=== PATIENT | female | born 1960 | race Caucasian/White ===

== ENCOUNTER 2016-11-05 16:24 | Outpatient (CLI) | payer OTHER ==
--- NOTE | 2016-11-05 17:01 | DIAGNOSTIC IMAGING REPORT ---
PROCEDURE: XR KNEE 3 VIEWS - LEFT INDICATION: KNEE JOINT PAIN LEFT TECHNIQUE: Three views. COMPARISON: None. FINDINGS: No fracture or dislocation. Mild spurring of the medial and patellofemoral compartments. No effusion. IMPRESSION: 1. Mild degenerative changes.
== END 2016-11-05 23:00 ==
LOC: XR SRH 16:24
DX: M17.12 Unilateral primary osteoarthritis, left knee (principal)

== ENCOUNTER 2017-01-20 11:08 | Outpatient (CLI) | payer OTHER ==
--- NOTE | 2017-01-20 13:33 | DIAGNOSTIC IMAGING REPORT ---
PROCEDURE: ABDOMEN/PELVIS WITH CONTRAST CLINICAL INDICATION: ABD PAIN TECHNIQUE: 125 ml of Isovue 300 were injected intravenously and axial images were obtained of the abdomen and pelvis with sagittal and coronal reformations. COMPARISON: None. FINDINGS: ABDOMEN: Clear lung bases. Normal sized heart. No hiatal hernia. Tiny hepatic hypodensity to small to accurately characterize. Small splenic hilum splenule. The liver, gallbladder, adrenal glands, kidneys, pancreas and spleen are otherwise normal. The abdominal aorta is normal in its course and caliber. No atherosclerosis. There are no suspicious calcifications, retroperitoneal adenopathy or masses. The stomach, upper bowel loops, and mesentery are normal. Intact anterior abdominal wall. No free fluid or inflammation. PELVIS: The appendix and pelvic small bowel loops are normal. Normal to slightly increased amount of stool in the colon and rectum. The uterus, ovaries , urinary bladder, and pelvic vessels are normal. No adenopathy, free fluid, or pelvic mass. Intact osseous structures. IMPRESSION: 1. No acute process. All CT scans at this facility use dose modulation, iterative reconstruction, and/or weight-based dosing when appropriate to reduce radiation dose to as low as reasonably achievable.
== END 2017-01-20 23:00 | disposition home or self-care (01) ==
LOC: LAB SRH 11:08 → CT SRH 11:08
DX: R10.32 Left lower quadrant pain (principal)
CPT/HCPCS: 90074; 90100; 92235; 95059

== ENCOUNTER 2017-02-10 05:26 | Emergency (ER) | payer OTHER ==
--- NOTE | 2017-02-10 07:14 | DIAGNOSTIC IMAGING REPORT ---
PROCEDURE: XR ABDOMEN 1 VIEW UPRIGHT INDICATION: ABDOMINAL PAIN TECHNIQUE: AP upright view. COMPARISON: CT abdomen/pelvis 01/20/2017. FINDINGS: Nonspecific bowel gas pattern. Mild residual stool. No suspicious mass, calcification or free air. Mild levoconvex scoliosis. IMPRESSION: 1. Nonspecific bowel gas pattern.
--- NOTE | 2017-02-10 08:12 | DIAGNOSTIC IMAGING REPORT ---
PROCEDURE: CT ABD/PELVIS WITH CONTRAST CLINICAL INDICATION: ABDOMINAL PAIN TECHNIQUE: 125 ml of Isovue 300 were injected intravenously and axial images were obtained of the entire abdomen and pelvis with sagittal and coronal reformations. COMPARISON: CT abdomen/pelvis 01/20/2017. FINDINGS: ABDOMEN: Lung base are clear. Heart size is normal. Stable four Laird hypoenhancing lesion in the left hepatic lobe, too small to characterize. The gallbladder, pancreas, spleen (splenule), adrenal glands and kidneys are normal. Normal abdominal aorta. Nonspecific bowel gas pattern. PELVIS: Normal appendix. Uterus, adnexa and bladder are unremarkable. No pelvic mass, inflammatory changes or free fluid. Bones are unremarkable. IMPRESSION: 1. Negative CT abdomen/pelvis 2. Results discussed with Dr. Madrid All CT scans at this facility use dose modulation, iterative reconstruction, and/or weight-based dosing when appropriate to reduce radiation dose to as low as reasonably achievable.
--- NOTE | 2017-02-10 09:06 | ED ORDER SUMMARY ---
..... Patient: DAGOBERTO BATISTA OrderSheet [facility] VisitID: [id number] [place] [address] 56y, F Registration Date/Time: 02/10/2017 ORDER SHEET Weight: 81.6 kg (stated) Allergies: morphine GENERAL ORDERS: Cardiac Panel Stat (05:46 02/10/2017 Tiffany VELARDE) (Ack 5:51 RKaruga) (5:52 GISELEradlynda R.N.) Amylase Urgent (05:46 02/10/2017 Tiffany VELARDE) (Ack 5:51 RKaruga) (5:52 Clarice R.N.) Lipase Urgent (05:46 02/10/2017 Tiffany VELARDE) (Ack 5:51 RKaruga) (5:52 Clarice R.N.) UA-Culture if indicated Urgent (05:46 02/10/2017 Tiffany VELARDE) (Ack 5:51 RKaruga) (6:00 Johnburn R.N.) PCT (Procalcitonin) Urgent (05:46 02/10/2017 Tiffany VELARDE) (Ack 5:51 RKaruga) (5:52 Clarice R.N.) Lactate, Serum Urgent (05:46 02/10/2017 Tiffany VELARDE) (Ack 5:51 RKaruga) (5:57 Clarice R.N.) CRP Urgent (05:46 02/10/2017 Tiffany VELARDE) (Ack 5:51 RKaruga) (5:57 Clarice R.N.) Abdomen 1V Upright Urgent (05:47 02/10/2017 Tiffany VELARDE) (Ack 5:51 RKaruga) (6:08 GISELEradburn R.N.) CT Abd/Pel w Cont (No) (N/A) Urgent (07:09 02/10/2017 Tiffany VELARDE) (Ack 7:47 LNations ER Tech1) (8:03 Austyn R.N.) Urine Drug Screen Urgent (07:16 02/10/2017 Tiffany VELARDE) (7:18 Clarice R.N.) Lactate, Serum Urgent (07:23 02/10/2017 Tiffany VELARDE) (Ack 7:47 LNations ER Tech1) (8:03 Austyn Portillo) MEDICATION ORDERS: IV FLUIDS: IV NS : initial bolus 1000 mL (1000 mL/hr), then 125 mL/hr for 4h (NOW); Routine (05:46 02/10/2017 Tiffany VELARDE) (6:01 Clarice Portillo) ORDER SHEET NOTES: [Electronically signed by Brodie Green R.N. (09:35 02/10/2017)] [Electronically signed by Teofilo Madrid MD (08:56 02/11/2017)] [Electronically locked/signed by Brodie Green R.N. (09:35 02/10/2017)]
--- NOTE | 2017-02-10 09:06 | ED CLINICAL REPORT ---
Clinical Report - Physicians/Mid Levels [facility] [address] [place] [address] 02/10/2017 5:26 [id number] Time Seen: 05:37 Feb 10 2017. Arrived- By private vehicle. Historian- patient. CPT: ER phys charges level 4 (#[id number]). HISTORY OF PRESENT ILLNESS Chief Complaint: ABDOMINAL PAIN. At its maximum, severity described as moderate. When seen in the E.D., severity described as moderate. Modifying factors- worsened by movement. Relieved by rest. It is described as "pain" and it is described as located in the left lower quadrant. This started about 2 weeks and is still present (worse). No nausea, vomiting or diarrhea. Similar symptoms previously: None. Recent medical care: Not recently seen/assessed. REVIEW OF SYSTEMS The patient has had constipation. No black stools, hematemesis, pain with urination, urinary frequency or bloody stools. No fever, sore throat, chest pain, difficulty breathing or cough. No joint pain, skin rash, chills or back pain. Last bowel movement- 2 weeks ago. All systems otherwise negative, except as recorded above. PAST HISTORY Duodenal ulcer disease. Gastroesophageal Reflux Disease. Diabetes Mellitus. . ADDITIONAL SURGERIES: Carpal Tunnel Surgery. Knee Surgery. Medications: Omeprazole Oral 40 mg, daily. MetFORMIN HCl Oral (Tablet 500 mg) 1 tablet, 2x a day. Allergies: morphine. Definite Severe(hives). SOCIAL HISTORY Never smoker. No alcohol use or drug use. ADDITIONAL NOTES The nursing notes have been reviewed. PHYSICAL EXAM Vital Signs: 02/10/2017 05:31 BP: 167/102. HR: 150. RR: 20. O2 saturation: 97%. Temp: 98.3 F. Pain level now: 10/10. Appearance: Alert. Appears to be in pain. Patient in moderate distress. Eyes: Eyes normal inspection. ENT: Pharynx normal. Neck: Normal inspection. CVS: Normal heart rate and rhythm. Heart sounds normal. Pulses normal. Respiratory: No respiratory distress. Breath sounds normal. Chest nontender. Abdomen: Soft. Moderate tenderness in the left lower quadrant with guarding present. Abnormal bowel sounds: diminished. No mass. Back: Normal inspection. Skin: Skin warm. Normal skin color. No rash. Extremities: Extremities exhibit normal ROM. No lower extremity edema. Neuro: Oriented X 3. No motor deficit. No sensory deficit. Reflexes normal. LABS, X-RAYS, AND EKG Abdominal CT: Normal study. No diverticulitis. Abdominal CT performed with IV contrast. The study was independently viewed by me, interpreted by the radiologist and discussed with the radiologist. Laboratory Tests: UA-Culture if indicated: (MALI: 02/10/2017 05:59) ( [facility] 02/10/2017 06:22) Final results Test Result Flag Units (Reference) URINE COLOR YELLOW URINE APPEARANCE CLEAR URINE GLUCOSE NEGATIVE (NEGATIVE) URINE BILIRUBIN NEGATIVE (NEGATIVE) URINE KETONE TRACE (NEGATIVE) URINE SPECIFIC GRAVITY 1.025 (1.010-1.030) URINE PH 5.5 (5.0-8.0) URINE PROTEIN TRACE (NEGATIVE) URINE UROBILINOGEN 0.2 EU/dL (0.2-1.0) URINE NITRITE NEGATIVE (NEGATIVE) URINE BLOOD TRACE-LYSED (NEGATIVE) URINE LEUK ESTERASE POSITIVE (NEGATIVE) URINE RBC 1-3 rbc/hpf (0-1) URINE WBC 5-10 wbc/hpf (0-1) URINE EPITHELIAL CELLS 3-5 EPI/hpf (0-5) URINE BACTERIA NONE SEEN (NONE SEEN) URINE COMMENT CULTURE INDICATED 2+ MUCUSURINE CULTURES ARE SET-UP BASED ON THE FOLLOWING CRITERIA:POSITIVE NITRITEPOSITIVE LEUKOCYTE ESTERASEGREATER THAN 10 WHITE BLOOD CELLSMODERATE (2+) OR GREATER BACTERIA CBC w Diff: (MALI: 02/10/2017 05:53) ( Mscvd 02/10/2017 06:09) Final results Test Result Flag Units (Reference) WHITE BLOOD COUNT 9.6 K/uL (4.5-11.5) RED BLOOD COUNT 5.56 H M/uL (4.00-5.20) HEMOGLOBIN 16.4 H gm/dL (12.0-16.0) HEMATOCRIT 48.5 H % (36.0-46.0) MEAN CELL VOLUME 87 fL (80-100) MEAN CORPUSCULAR HGB 30 pg (26-34) MEAN CORPUSCULAR HGB CONC 34 g/dL (31-37) RED CELL DISTRIBUTION WIDTH 13.3 % (11.6-14.8) PLATELET COUNT 315 K/uL (150-400) NEUTROPHIL % 55.5 % (50-75) LYMPH % 35.1 % (25-40) MONO % 7.9 % (3-14) EOSINOPHIL % 1.1 % (0-4) BASOPHIL % 0.4 % (0-2) Lactate, Serum: (MALI: 02/10/2017 07:35) ( [facility] 02/10/2017 08:12) Final results Test Result Flag Units (Reference) LACTIC ACID 1.9 mmol/L (0.4-2.0) Urine Drug Screen: (MALI: 02/10/2017 05:59) ( [facility] 02/10/2017 07:49) Final results Test Result Flag Units (Reference) AMPHETAMINE/METHAMPHETAMINE NEGATIVE (NEGATIVE) BARBITURATE NEGATIVE (NEGATIVE) BENZODIAZEPINE NEGATIVE (NEGATIVE) CANNABINOID NEGATIVE (NEGATIVE) COCAINE NEGATIVE (NEGATIVE) ECSTASY NEGATIVE (NEGATIVE) METHADONE NEGATIVE (NEGATIVE) OPIATE NEGATIVE (NEGATIVE) The urine drug screen is a qualitative screening test fordrug overdose and abuse. All screen results should beconsidered as presumptive.Drugs screened for are as follows:BenzodiazepinesCocaineAmphetamines/MetamphetaminesTHC (Tetrahydrocannabinol)OpiatesBarbituratesEcstasyMethadonePositive results are unconfirmed. For confirmation, notifythe lab for the specimen to be sent to the reference lab.All confirmations must be performed by a differentmethodology.The ingestion of natural herbal and plant productscontaining Ephedra/Ephedra metabolites can produce in urineone or more substances capable of cross reacting withamphetamine/methamphetamine immunoassays. These testsprovide a preliminary result only. A more specificalternative chemical method must be used to obtain aconfirmed analytical result. Lactate, Serum: (MALI: 02/10/2017 05:53) ( [facility] 02/10/2017 07:08) Final results Test Result Flag Units (Reference) LACTIC ACID 3.9 H mmol/L (0.4-2.0) CRITICAL RESULTS CALLEDCalled to RORO BRICENO RN 02/10/17 0706Were 2 patient identifiers used? YWas the result read back? Y [id number]: (MALI: 02/10/2017 05:53) ( MsgRcvd 02/10/2017 07:08) Final results Test Result Flag Units (Reference) PROCALCITONIN <0.5 ng/mL (0-0.5) PCT Concentration: Interpretation : Risk/option for action PCT <=0.5 ng/mL : Systemic : Low risk forinfection(sepsis): progression to severeis not likely. : systemic infection.Local bacterial : CAUTION-PCT levelsinfection is : below 0.5 ng/mL do notpossible. : exclude an infection,because localizedinfections (withoutsystemic signs) may beassociated with suchlow levels. If PCT ismeasured very earlyafter a bacterialchallenge (usually <6hours), these valuesmay still be low. Inthis case PCT shouldbe re-assessed 6-24hours later. PCT >0.5 and : Systemic infection: Moderate risk for<= 2 ng/mL : (sepsis) is : progression to severepossible, but : systemic infection.other conditions : The patient should beare known to : closely monitoredelevate PCT. : both clinically andby re-assessing PCTwithin 6-24 hours. PCT > 2 ng/mL : Systemic infection: High risk for(sepsis) is likely: progression to severeunless other : systemic infection.causes are known. : PCT >= 10 ng/mL : Important systemic: High likelihood ofinflammatory : severe sepsis orresponse, almost : septic shock.exclusively due to:severe bacterial :sepsis or septic :shock. : CHEM 13 PANEL: (MALI: 02/10/2017 05:53) ( MsgRcvd 02/10/2017 06:30) Final results Test Result Flag Units (Reference) GLUCOSE 206 H mg/dL (70-110) BUN 12 mg/dL (7-18) CREATININE 1.0 mg/dL (0.6-1.3) Estimated GFR >60 mL/min Estimated GFR- >60 mL/min Note: Persistent reduction over 3 months in eGFR<60 mL/min/1.73 m2 defines CKD. Patients with eGFR values>=60 mL/min/1.73 m2 may also have CKD if evidence ofpersistent proteinuria. Additional information may be foundat www.kidney.org. SODIUM 140 mmol/L (136-145) POTASSIUM 3.7 mmol/L (3.5-5.1) CHLORIDE 102 mmol/L (98-107) CARBON DIOXIDE 26 mmol/L (21-32) CALCIUM 9.4 mg/dL (8.5-10.1) TOTAL PROTEIN 7.5 g/dL (6.4-8.2) ALBUMIN 4.0 g/dL (3.3-5.0) BILIRUBIN, TOTAL 0.6 mg/dL (0.0-1.0) ALKALINE PHOSPHATASE 80 U/L (46-116) AST (SGOT) 16 U/L (15-37) ALT (SGPT) 24 U/L (12-78) MAGNESIUM 1.9 mg/dL (1.8-2.4) LIPASE 102 U/L (73-393) AMYLASE 38 U/L (25-115) CPK 46 U/L (24-260) TROPONIN I <0.05 L ng/mL (0.00-1.5) TROPONIN REFERENCE RANGE:<0.1 NEGATIVE0.1-1.5 INDETERMINANT>1.5 POSITIVE C-REACTIVE PROTEIN < 0.2 mg/dL (0.0-0.9) . PROGRESS AND PROCEDURES Course of Care: IV NS Patient is stable. Patient/family counseled. Disposition: Discharged. Condition: stable. CLINICAL IMPRESSION Acute left lower quadrant abdominal pain of unknown cause. INSTRUCTIONS Do not work today, for one day until better. Take clear liquids only until better. (Until done with GoLytely.). Warnings: Further evaluation is necessary. GENERAL WARNINGS: Return or contact your physician immediately if your condition worsens or changes unexpectedly, if not improving as expected, or if other problems arise. Your Current Medications: CONTINUE TAKING THE FOLLOWING MEDICATIONS: MetFORMIN HCl Oral : Tablet 500 mg, 1 tablet 2x a day. Omeprazole Oral : 40 mg daily. Prescription Medications: Zofran (orally disintegrating tablets) 4 mg: take 1 orally every 4 hours as needed for nausea. Dispense five (5). No refill. GoLytely 4 oz every 15 minutes until gone. # 1 jug. Follow-up: Return to the emergency department tomorrow if not better. Follow up with your doctor in one week. Call for an appointment. Follow up with a bookseamer blindstitch in two weeks. Call for the next available appointment. Understanding of the discharge instructions verbalized by patient. (Electronically signed by Teofilo Madrid MD 02/11/2017 8:56)
--- NOTE | 2017-02-10 09:06 | ED NURSING NOTES ---
Clinical Report - Nurses [facility] [address] [place] [address] 02/10/2017 5:26 [id number] Triage time 05:30. Acuity: LEVEL 3. Chief Complaint: ABDOMINAL PAIN, NAUSEA and VOMITING and CONSTIPATION (states stool look like coffee grounds). --05:42 Geri Hong R.N. 05:31 02/10/17. BP: 167/102 taken on the left arm, while lying. HR: 150 (regular and tachycardic). RR: 20 (regular, unlabored and rapid). O2 saturation: 97% on room air. Temp: 98.3 F (oral). Pain level now: 05/20. --05:42 Geri Hong R.N. Weight: 81.6 kg stated. Height/Length: 62 inches Per Patient. BMI: 32.9. --05:30 Geri Hong R.N. Medications MetFORMIN HCl Oral (Tablet 500 mg) 1 tablet, 2x a day. --05:37 Geri Hong R.N. Omeprazole Oral 40 mg, daily. --05:37 Geri Hong R.N. Allergies morphine. Definite Severe(hives) --05:39 Geri Hong R.N. History Arrived by private vehicle. Historian: patient. Unaccompanied. Primary physician (christa). ( reports no BM for 2 weeks except very small amt of what looks like coffee grounds since Friday with severe pain on the left lower. pt states she feels like there is no room in her stomach for anything. CT scan done here 2 weeks ago for same). PAST MEDICAL HX: Immunizations: up-to-date. The patient is post-menopausal. SOCIAL HX: Never smoker. No alcohol use or drug use. No infectious disease exposure. ABUSE ASSESSMENT: No report of abuse. SELF HARM ASSESSMENT: A self harm assessment was performed. The patient answered "no" to the question "Have you recently felt down, depressed, or hopeless?", "Have you noticed less interest or pleasure in doing things?", "Do you have thoughts of harming or killing yourself?", "Are you here because you tried to hurt yourself?", "Have you ever tried to hurt yourself before today?", "Have you recently had thoughts about harming or killing others?" and "Do you have any dangerous items in your possession?". FALL RISK ASSESSMENT: Fall risk assessment completed. No fall risk identified. NUTRITIONAL RISK ASSESSMENT: The nutritional risk assessment revealed no deficiencies. FUNCTIONAL ASSESSMENT: Functional assessment: no impairments noted. LEARNING NEEDS ASSESSMENT: The learning needs assessment revealed no barriers. SKIN INTEGRITY ASSESSMENT: Skin integrity risk assessment completed. No skin integrity risk identified. --05:42 Geri Hong R.N. PROBLEMS: Duodenal ulcer disease. Gastroesophageal Reflux Disease. Diabetes Mellitus. --05:40 Geri Hong R.N. ADDITIONAL SURGERIES: Carpal Tunnel Surgery. Knee Surgery. --05:40 Geri Hong R.N. Interventions ID band on patient. To treatment room. --05:42 Geri Hong R.N. PHYSICAL ASSESSMENT Ambulatory to room. GENERAL / NEURO / PSYCH: Alert. Oriented X 4. Appears anxious. HEENT: Mucous membranes are pink. RESPIRATORY: Respirations not labored. Breath sounds within normal limits. CVS: Normal sinus rhythm noted. Cardiac rhythm: sinus tachycardia; (128). Capillary refill less than 2 seconds. GI / : Mild obesity. Abdomen soft. Abdominal tenderness in the left lower quadrant. Bowel sounds within normal limits. Stool heme negative; hemoccult corporate quality assurance manager check passed. performed by mD (POC test reference range: negative). SKIN: Skin is warm and dry. --05:44 Geri Hong R.N. NURSING PROGRESS NOTES Two patient identifiers checked. Call light placed in reach. Side rails up x 2. Bed placed in lowest position. Brakes of bed on. Patient ready for evaluation- chart flagged. --05:44 Geri Hong R.N. 05:53 02/10/2017 Site #1 started via IV in the left wrist with an 20g angiocath, with aseptic technique and good blood return; one attempt. Blood drawn: rainbow set. Labeled in the presence of the patient and sent to the lab. Saline lock flushed with 10 mL saline. --05:57 Geri Hong R.N. 06:01 02/10/2017 Started bag #1 1000 mL IV Fluids IV NS (Saline); bolus of 1000 mL wide open then over 1 hour(s) via site #1. Allergies verified and confirmed 5 rights. IV patency established. IV site checked: no pain, redness, or swelling. IV flushed thoroughly pre- and post-medication administration. --06:01 Geri Hong R.N. 06:56 02/10/17. BP: 145/95 taken on the right arm, while lying. HR: 99 (regular and normal rate). RR: 18. O2 saturation: 99%. Temp: deferred. Pain level now: 12/18. --07:01 Geri Hong R.N. Overall patient status is the same- she states feels the same. ( pt continues to complain of pain , will continue to monitor). GI / : The patient reports abdominal pain located in the LUQ and LLQ. Two patient identifiers checked. Call light placed in reach. Side rails up x 2. Bed placed in lowest position. Brakes of bed on. --07:01 Geri Hong R.N. Critical value relayed to ED by lab. Critical value received by vaibhav. Lactate level: 3.9. Critical value read back. ED physician notifed of critical value (heber). Orders were not received. --07:10 Geri Hong R.N. 07:42 02/10/17. Patient transported to ID by stretcher with [employer]. --07:42 Brodie Green R.N. 07:42 02/10/17. ( Lab at bedside drawing blood). --07:42 Brodie Green R.N. 07:59 02/10/2017 IV Fluids IV NS Discontinued: bag #1 infused. Total amount infused: 1000 mL. IV patency established. IV site checked: no pain, redness, or swelling. IV flushed thoroughly. --08:04 Brodie Green R.N. 08:02 02/10/17. Patient returned from CT by stretcher with tech. --08:02 Brodie Green R.N. 08:03 02/10/17. --08:03 Brodie Green R.N. 08:02 02/10/17. BP: 144/90. HR: 88. RR: 18. O2 saturation: 100% on room air. --08:03 Brodie Green R.N. 08:04 02/10/2017 Started bag #2 1000 mL IV Fluids IV NS (Saline); at 125 mL/hr over 4 hour(s) via site #1. Allergies verified and confirmed 5 rights. Completed per protocol. --08:04 Brodie Green R.N. 08:02/10/17. Cardiac rhythm: normal sinus rhythm; (88). --08:09 Brodie Green R.N. 08:09 02/10/17. ( Pt ambulated to bathroom and back to bed, tolerated well). --08:09 Brodie Green R.N. 08:10 02/10/17. Patient informed about reason for wait and about plan of care. --08:10 Brodie Green R.N. 08:10 02/10/17. Patient waiting for CT results and (lab results). --08:10 Brodie Green R.N. 09:14 02/10/2017 IV Fluids IV NS Discontinued: bag #2 STOPPED upon discharge. Total amount infused: 150 mL. IV patency established. IV site checked: no pain, redness, or swelling. IV flushed thoroughly. --09:19 Brodie Green R.N. DISPOSITION / DISCHARGE 09:17 02/10/2017 Site #1 removed upon discharge. Catheter intact. Bandage applied. --09:17 Brodie Green R.N. 09:18 02/10/17. Cardiac rhythm: normal sinus rhythm. Condition at departure: improved. The goals identified in the patient's plan of care were met. No learning barriers present. Discharge instructions provided and reviewed with the patient. Reviewed warnings. Reviewed medication(s) side effects, precautions, dosing and course information. Prescription(s) given to the patient. Treatments reviewed. Reviewed referrals. Patient verbalized understanding. Written instructions provided in [place]. The patient was discharged by the physician. She was discharged home and unaccompanied at time of discharge. She left the Emergency Department ambulatory and via private vehicle. Patient driving. FALL RISK ASSESSMENT: Fall risk assessment completed. No fall risk identified. --09:18 Brodie Green R.N. 09:16 02/10/17. BP: 123/83. HR: 80. RR: 20. O2 saturation: 100% on room air. Pain level now: 11/18. --09:18 Brodie Green R.N. Departure time: 09:23 Feb 10 2017. --09:23 Brodie Green R.N. Locked/Released at 02/10/2017 9:35 by Brodie Green R.N.
--- NOTE | 2017-02-10 09:06 | ED ORDER SUMMARY ---
..... Patient: DAGOBERTO BATISTA OrderSheet [facility] VisitID: [id number] [place] [address] 56y, F Registration Date/Time: 02/10/2017 ORDER SHEET Weight: 81.6 kg (stated) Allergies: morphine GENERAL ORDERS: Cardiac Panel Stat (05:46 02/10/2017 Tiffany VELARDE) (Ack 5:51 RKaruga) (5:52 GISELEradlynda R.N.) Amylase Urgent (05:46 02/10/2017 Tiffany VELARDE) (Ack 5:51 RKaruga) (5:52 Clarice R.N.) Lipase Urgent (05:46 02/10/2017 Tiffany VELARDE) (Ack 5:51 RKaruga) (5:52 Clarice R.N.) UA-Culture if indicated Urgent (05:46 02/10/2017 Tiffany VELARDE) (Ack 5:51 RKaruga) (6:00 Johnburn R.N.) PCT (Procalcitonin) Urgent (05:46 02/10/2017 Tiffany VELARDE) (Ack 5:51 RKaruga) (5:52 Clarice R.N.) Lactate, Serum Urgent (05:46 02/10/2017 Tiffany VELARDE) (Ack 5:51 RKaruga) (5:57 Clarice R.N.) CRP Urgent (05:46 02/10/2017 Tiffany VELARDE) (Ack 5:51 RKaruga) (5:57 Clarice R.N.) Abdomen 1V Upright Urgent (05:47 02/10/2017 Tiffany VELARDE) (Ack 5:51 RKaruga) (6:08 GISELEradburn R.N.) CT Abd/Pel w Cont (No) (N/A) Urgent (07:09 02/10/2017 Tiffany VELARDE) (Ack 7:47 LNations ER Tech1) (8:03 Austyn R.N.) Urine Drug Screen Urgent (07:16 02/10/2017 Tiffany VELARDE) (7:18 Clarice R.N.) Lactate, Serum Urgent (07:23 02/10/2017 Tiffany VELARDE) (Ack 7:47 LNations ER Tech1) (8:03 Austyn Portillo) MEDICATION ORDERS: IV FLUIDS: IV NS : initial bolus 1000 mL (1000 mL/hr), then 125 mL/hr for 4h (NOW); Routine (05:46 02/10/2017 Tiffany VELARDE) (6:01 Clarice Portillo) ORDER SHEET NOTES: [Electronically signed by Brodie Green R.N. (09:35 02/10/2017)] [Electronically signed by Teofilo Madrid MD (08:56 02/11/2017)] [Electronically locked/signed by Brodie Green R.N. (09:35 02/10/2017)]
--- NOTE | 2017-02-10 09:06 | ED CLINICAL REPORT ---
Clinical Report - Physicians/Mid Levels [facility] [address] [place] [address] 02/10/2017 5:26 [id number] Time Seen: 05:37 Feb 10 2017. Arrived- By private vehicle. Historian- patient. CPT: ER phys charges level 4 (#[id number]). HISTORY OF PRESENT ILLNESS Chief Complaint: ABDOMINAL PAIN. At its maximum, severity described as moderate. When seen in the E.D., severity described as moderate. Modifying factors- worsened by movement. Relieved by rest. It is described as "pain" and it is described as located in the left lower quadrant. This started about 2 weeks and is still present (worse). No nausea, vomiting or diarrhea. Similar symptoms previously: None. Recent medical care: Not recently seen/assessed. REVIEW OF SYSTEMS The patient has had constipation. No black stools, hematemesis, pain with urination, urinary frequency or bloody stools. No fever, sore throat, chest pain, difficulty breathing or cough. No joint pain, skin rash, chills or back pain. Last bowel movement- 2 weeks ago. All systems otherwise negative, except as recorded above. PAST HISTORY Duodenal ulcer disease. Gastroesophageal Reflux Disease. Diabetes Mellitus. . ADDITIONAL SURGERIES: Carpal Tunnel Surgery. Knee Surgery. Medications: Omeprazole Oral 40 mg, daily. MetFORMIN HCl Oral (Tablet 500 mg) 1 tablet, 2x a day. Allergies: morphine. Definite Severe(hives). SOCIAL HISTORY Never smoker. No alcohol use or drug use. ADDITIONAL NOTES The nursing notes have been reviewed. PHYSICAL EXAM Vital Signs: 02/10/2017 05:31 BP: 167/102. HR: 150. RR: 20. O2 saturation: 97%. Temp: 98.3 F. Pain level now: 10/10. Appearance: Alert. Appears to be in pain. Patient in moderate distress. Eyes: Eyes normal inspection. ENT: Pharynx normal. Neck: Normal inspection. CVS: Normal heart rate and rhythm. Heart sounds normal. Pulses normal. Respiratory: No respiratory distress. Breath sounds normal. Chest nontender. Abdomen: Soft. Moderate tenderness in the left lower quadrant with guarding present. Abnormal bowel sounds: diminished. No mass. Back: Normal inspection. Skin: Skin warm. Normal skin color. No rash. Extremities: Extremities exhibit normal ROM. No lower extremity edema. Neuro: Oriented X 3. No motor deficit. No sensory deficit. Reflexes normal. LABS, X-RAYS, AND EKG Abdominal CT: Normal study. No diverticulitis. Abdominal CT performed with IV contrast. The study was independently viewed by me, interpreted by the radiologist and discussed with the radiologist. Laboratory Tests: UA-Culture if indicated: (MALI: 02/10/2017 05:59) ( [facility] 02/10/2017 06:22) Final results Test Result Flag Units (Reference) URINE COLOR YELLOW URINE APPEARANCE CLEAR URINE GLUCOSE NEGATIVE (NEGATIVE) URINE BILIRUBIN NEGATIVE (NEGATIVE) URINE KETONE TRACE (NEGATIVE) URINE SPECIFIC GRAVITY 1.025 (1.010-1.030) URINE PH 5.5 (5.0-8.0) URINE PROTEIN TRACE (NEGATIVE) URINE UROBILINOGEN 0.2 EU/dL (0.2-1.0) URINE NITRITE NEGATIVE (NEGATIVE) URINE BLOOD TRACE-LYSED (NEGATIVE) URINE LEUK ESTERASE POSITIVE (NEGATIVE) URINE RBC 1-3 rbc/hpf (0-1) URINE WBC 5-10 wbc/hpf (0-1) URINE EPITHELIAL CELLS 3-5 EPI/hpf (0-5) URINE BACTERIA NONE SEEN (NONE SEEN) URINE COMMENT CULTURE INDICATED 2+ MUCUSURINE CULTURES ARE SET-UP BASED ON THE FOLLOWING CRITERIA:POSITIVE NITRITEPOSITIVE LEUKOCYTE ESTERASEGREATER THAN 10 WHITE BLOOD CELLSMODERATE (2+) OR GREATER BACTERIA CBC w Diff: (MALI: 02/10/2017 05:53) ( [facility] 02/10/2017 06:09) Final results Test Result Flag Units (Reference) WHITE BLOOD COUNT 9.6 K/uL (4.5-11.5) RED BLOOD COUNT 5.56 H M/uL (4.00-5.20) HEMOGLOBIN 16.4 H gm/dL (12.0-16.0) HEMATOCRIT 48.5 H % (36.0-46.0) MEAN CELL VOLUME 87 fL (80-100) MEAN CORPUSCULAR HGB 30 pg (26-34) MEAN CORPUSCULAR HGB CONC 34 g/dL (31-37) RED CELL DISTRIBUTION WIDTH 13.3 % (11.6-14.8) PLATELET COUNT 315 K/uL (150-400) NEUTROPHIL % 55.5 % (50-75) LYMPH % 35.1 % (25-40) MONO % 7.9 % (3-14) EOSINOPHIL % 1.1 % (0-4) BASOPHIL % 0.4 % (0-2) Lactate, Serum: (MALI: 02/10/2017 07:35) ( [facility] 02/10/2017 08:12) Final results Test Result Flag Units (Reference) LACTIC ACID 1.9 mmol/L (0.4-2.0) Urine Drug Screen: (MALI: 02/10/2017 05:59) ( [facility] 02/10/2017 07:49) Final results Test Result Flag Units (Reference) AMPHETAMINE/METHAMPHETAMINE NEGATIVE (NEGATIVE) BARBITURATE NEGATIVE (NEGATIVE) BENZODIAZEPINE NEGATIVE (NEGATIVE) CANNABINOID NEGATIVE (NEGATIVE) COCAINE NEGATIVE (NEGATIVE) ECSTASY NEGATIVE (NEGATIVE) METHADONE NEGATIVE (NEGATIVE) OPIATE NEGATIVE (NEGATIVE) The urine drug screen is a qualitative screening test fordrug overdose and abuse. All screen results should beconsidered as presumptive.Drugs screened for are as follows:BenzodiazepinesCocaineAmphetamines/MetamphetaminesTHC (Tetrahydrocannabinol)OpiatesBarbituratesEcstasyMethadonePositive results are unconfirmed. For confirmation, notifythe lab for the specimen to be sent to the reference lab.All confirmations must be performed by a differentmethodology.The ingestion of natural herbal and plant productscontaining Ephedra/Ephedra metabolites can produce in urineone or more substances capable of cross reacting withamphetamine/methamphetamine immunoassays. These testsprovide a preliminary result only. A more specificalternative chemical method must be used to obtain aconfirmed analytical result. Lactate, Serum: (MALI: 02/10/2017 05:53) ( [facility] 02/10/2017 07:08) Final results Test Result Flag Units (Reference) LACTIC ACID 3.9 H mmol/L (0.4-2.0) CRITICAL RESULTS CALLEDCalled to RORO BRICENO RN 02/10/17 0706Were 2 patient identifiers used? YWas the result read back? Y [id number]: (MALI: 02/10/2017 05:53) ( MsgRcvd 02/10/2017 07:08) Final results Test Result Flag Units (Reference) PROCALCITONIN <0.5 ng/mL (0-0.5) PCT Concentration: Interpretation : Risk/option for action PCT <=0.5 ng/mL : Systemic : Low risk forinfection(sepsis): progression to severeis not likely. : systemic infection.Local bacterial : CAUTION-PCT levelsinfection is : below 0.5 ng/mL do notpossible. : exclude an infection,because localizedinfections (withoutsystemic signs) may beassociated with suchlow levels. If PCT ismeasured very earlyafter a bacterialchallenge (usually <6hours), these valuesmay still be low. Inthis case PCT shouldbe re-assessed 6-24hours later. PCT >0.5 and : Systemic infection: Moderate risk for<= 2 ng/mL : (sepsis) is : progression to severepossible, but : systemic infection.other conditions : The patient should beare known to : closely monitoredelevate PCT. : both clinically andby re-assessing PCTwithin 6-24 hours. PCT > 2 ng/mL : Systemic infection: High risk for(sepsis) is likely: progression to severeunless other : systemic infection.causes are known. : PCT >= 10 ng/mL : Important systemic: High likelihood ofinflammatory : severe sepsis orresponse, almost : septic shock.exclusively due to:severe bacterial :sepsis or septic :shock. : CHEM 13 PANEL: (MALI: 02/10/2017 05:53) ( MsgRcvd 02/10/2017 06:30) Final results Test Result Flag Units (Reference) GLUCOSE 206 H mg/dL (70-110) BUN 12 mg/dL (7-18) CREATININE 1.0 mg/dL (0.6-1.3) Estimated GFR >60 mL/min Estimated GFR- >60 mL/min Note: Persistent reduction over 3 months in eGFR<60 mL/min/1.73 m2 defines CKD. Patients with eGFR values>=60 mL/min/1.73 m2 may also have CKD if evidence ofpersistent proteinuria. Additional information may be foundat www.kidney.org. SODIUM 140 mmol/L (136-145) POTASSIUM 3.7 mmol/L (3.5-5.1) CHLORIDE 102 mmol/L (98-107) CARBON DIOXIDE 26 mmol/L (21-32) CALCIUM 9.4 mg/dL (8.5-10.1) TOTAL PROTEIN 7.5 g/dL (6.4-8.2) ALBUMIN 4.0 g/dL (3.3-5.0) BILIRUBIN, TOTAL 0.6 mg/dL (0.0-1.0) ALKALINE PHOSPHATASE 80 U/L (46-116) AST (SGOT) 16 U/L (15-37) ALT (SGPT) 24 U/L (12-78) MAGNESIUM 1.9 mg/dL (1.8-2.4) LIPASE 102 U/L (73-393) AMYLASE 38 U/L (25-115) CPK 46 U/L (24-260) TROPONIN I <0.05 L ng/mL (0.00-1.5) TROPONIN REFERENCE RANGE:<0.1 NEGATIVE0.1-1.5 INDETERMINANT>1.5 POSITIVE C-REACTIVE PROTEIN < 0.2 mg/dL (0.0-0.9) . PROGRESS AND PROCEDURES Course of Care: IV NS Patient is stable. Patient/family counseled. Disposition: Discharged. Condition: stable. CLINICAL IMPRESSION Acute left lower quadrant abdominal pain of unknown cause. INSTRUCTIONS Do not work today, for one day until better. Take clear liquids only until better. (Until done with GoLytely.). Warnings: Further evaluation is necessary. GENERAL WARNINGS: Return or contact your physician immediately if your condition worsens or changes unexpectedly, if not improving as expected, or if other problems arise. Your Current Medications: CONTINUE TAKING THE FOLLOWING MEDICATIONS: MetFORMIN HCl Oral : Tablet 500 mg, 1 tablet 2x a day. Omeprazole Oral : 40 mg daily. Prescription Medications: Zofran (orally disintegrating tablets) 4 mg: take 1 orally every 4 hours as needed for nausea. Dispense five (5). No refill. GoLytely 4 oz every 15 minutes until gone. # 1 jug. Follow-up: Return to the emergency department tomorrow if not better. Follow up with your doctor in one week. Call for an appointment. Follow up with a central supply worker in two weeks. Call for the next available appointment. Understanding of the discharge instructions verbalized by patient. (Electronically signed by Teofilo Madrid MD 02/11/2017 8:56)
--- NOTE | 2017-02-11 08:56 | ED MED RECONCILIATION SUMMARY ---
Patient: DAGOBERTO BATISTA Medication Reconciliation Report [facility] VisitID: [id number] [address] [place] [address] 56y, F Registration Date/Time: 02/10/2017 Weight: 81.6 kg Height/Length: 62 in. BMI: 32.9 ALLERGIES: morphine The patient's Home Medications are listed below: CONTINUE TAKING THE FOLLOWING MEDICATIONS: MetFORMIN HCl Oral (500 mg) 1 tablet, 2x a day Omeprazole Oral 40 mg, daily The source(s) of the original Home Medication information: Not obtained. The following Medications were given to the patient in the Emergency Department: IV NS IV Fluids bolus 1000 mL wide open, administered: 02/10/2017 6:01:00 AM IV NS IV Fluids bolus 0, then 125 mL/hr, administered: 02/10/2017 8:04:00 AM The following Medications were prescribed to the patient: Zofran (orally disintegrating tablets) 4 mg: take 1 orally every 4 hours as needed for nausea. Dispense five (5). No refill. -- Teofilo Madrid MD GoLytely 4 oz every 15 minutes until gone. # 1 jug. -- Teofilo Madrid MD
--- NOTE | 2017-02-11 08:56 | ED DISCHARGE INSTRUCTIONS ---
Patient: DAGOBERTO BATISTA General Instructions [facility] VisitID: [id number] [place] [address] 56y, F Registration Date/Time: 02/10/2017 Acute left lower quadrant abdominal pain of unknown cause. INSTRUCTIONS Do not work today, for one day until better. Take clear liquids only until better. (Until done with GoLytely.). Warnings: Further evaluation is necessary. GENERAL WARNINGS: Return or contact your physician immediately if your condition worsens or changes unexpectedly, if not improving as expected, or if other problems arise. Your Current Medications: CONTINUE TAKING THE FOLLOWING MEDICATIONS: MetFORMIN HCl Oral : Tablet 500 mg, 1 tablet 2x a day. Omeprazole Oral : 40 mg daily. Prescription Medications: Zofran (orally disintegrating tablets) 4 mg: take 1 orally every 4 hours as needed for nausea. Dispense five (5). No refill. GoLytely 4 oz every 15 minutes until gone. # 1 jug. Follow-up: Return to the emergency department tomorrow if not better. Follow up with your doctor in one week. Call for an appointment. Follow up with a state fire marshal in two weeks. Call for the next available appointment. Understanding of the discharge instructions verbalized by patient. ADDITIONAL INFORMATION Abdominal Pain, Unknown Cause (Female) The exact cause of your abdominal (stomach) pain is not certain. This does not mean that this is something to worry about, or the right tests were not done. Everyone likes to know the exact cause of the problem, but sometimes with abdominal pain, there is no clear-cut cause, and this could be a good thing. The good news is that your symptoms can be treated, and you will feel better. Your condition does not seem serious now; however, sometimes the signs of a serious problem may take more time to appear. For this reason,it is important for you to watch for any new symptoms, problems,or worsening of your condition. Over the next few days, the abdominal pain may come and go, or be continuous. Other common symptoms can include nausea and vomiting. Sometimes it can be difficult to tell if you feel nauseous, you may just feel bad and not associate that feeling with nausea. Constipation, diarrhea, and a fever may go along with the pain. The pain may continue even if treated correctly over the following days. Depending on how things go, sometimes the cause can become clear and may require further or different treatment. Additional evaluations, medications, or tests may be needed. Home care Your health care provider may prescribe medications for pain, symptoms, or an infection. Follow the health care provider's instructions for taking these medications. General care Rest until your next exam. No strenuous activities. Try to find positions that ease discomfort. A small pillow placed on the abdomen may help relieve pain. Something warm on your abdomen (such as a heating pad) may help, but be careful not to burn yourself. Diet Do not force yourself to eat, especially if having cramps, vomiting, or diarrhea. Water is important so you do not get dehydrated. Soup may also be good. Sports drinks may also help, especially if they are not too acidic. Make sure you don't drink sugary drinks as this can make things worse. Take liquids in small amounts. Do not guzzle them. Caffeine sometimes makes the pain and cramping worse. Avoid dairy products if you have vomiting or diarrhea. Don't eat large amounts at a time. Wait a few minutes between bites. Eat a diet low in fiber (called a low-residue diet). Foods allowed include refined breads, white rice, fruit and vegetable juices without pulp, tender meats. These foods will pass more easily through the intestine. Avoid whole-grain foods, whole fruits and vegetables, meats, seeds and nuts, fried or fatty foods, dairy, alcohol and spicy foods until your symptoms go away. Follow-up care Follow up with your health care provider as instructed, or if your pain does not begin to improve in the next 24 hours. When to seek medical care Seek prompt medical care if any of the following occur: Pain gets worse or moves to the right lower abdomen New or worsening vomiting or diarrhea Swelling of the abdomen Unable to pass stool for more than three days Fever of 100.4F (38C) or higher, or as directed by your healthcare provider. Blood in vomit or bowel movements (dark red or black color) Jaundice (yellow color of eyes and skin) Weakness, dizziness Chest, arm, back, neck or jaw pain Unexpected vaginal bleeding or missed period Call 911 Call emergency services if any of the following occur: Trouble breathing Confusion Fainting or loss of consciousness Rapid heart rate Seizure Ondansetron Oral disintegrating tablet What is this medicine? ONDANSETRON (on PATRIZIA se raymond) is used to treat nausea and vomiting caused by chemotherapy. It is also used to prevent or treat nausea and vomiting after surgery. How should I use this medicine? These tablets are made to dissolve in the mouth. Do not try to push the tablet through the foil backing. With dry hands, peel away the foil backing and gently remove the tablet. Place the tablet in the mouth and allow it to dissolve, then swallow. While you may take these tablets with water, it is not necessary to do so. Talk to your machine design engineer regarding the use of this medicine in children. Special care may be needed. What side effects may I notice from receiving this medicine? Side effects that you should report to your doctor or health career center director as soon as possible: allergic reactions like skin rash, itching or hives, swelling of the face, lips, or tongue breathing problems dizziness fast or irregular heartbeat feeling faint or lightheaded, falls fever and chills swelling of the hands and feet tightness in the chest Side effects that usually do not require medical attention (report to your doctor or health career center director if they continue or are bothersome): constipation or diarrhea headache What may interact with this medicine? Do not take this medicine with any of the following medications: -apomorphine -cisapride -dofetilide -dronedarone -pimozide -thioridazine -ziprasidone This medicine may also interact with the following medications: -carbamazepine -phenytoin -rifampicin -tramadol -other medicines that prolong the QT interval (cause an abnormal heart rhythm) What if I miss a dose? If you miss a dose, take it as soon as you can. If it is almost time for your next dose, take only that dose. Do not take double or extra doses. Where should I keep my medicine? Keep out of the reach of children. Store between 2 and 30 degrees C (36 and 86 degrees F). Throw away any unused medicine after the expiration date. What should I tell my health care provider before I take this medicine? They need to know if you have any of these conditions: heart disease history of irregular heartbeat liver disease low levels of magnesium or potassium in the blood an unusual or allergic reaction to ondansetron, granisetron, other medicines, foods, dyes, or preservatives or trying to get breast-feeding What should I watch for while using this medicine? Check with your doctor or health career center director as soon as you can if you have any sign of an allergic reaction. You have been given the following additional information: Abdominal Pain, Unknown Cause, (Female) Ondansetron Oral disintegrating tablet Do not work today, for one day until better. (Electronically signed by Teofilo Madrid MD 02/11/2017 8:56)
--- NOTE | 2017-02-11 08:56 | ED DISCHARGE INSTRUCTIONS ---
Patient: DAGOBERTO BATISTA General Instructions [facility] VisitID: [id number] [place] [address] 56y, F Registration Date/Time: 02/10/2017 Acute left lower quadrant abdominal pain of unknown cause. INSTRUCTIONS Do not work today, for one day until better. Take clear liquids only until better. (Until done with GoLytely.). Warnings: Further evaluation is necessary. GENERAL WARNINGS: Return or contact your physician immediately if your condition worsens or changes unexpectedly, if not improving as expected, or if other problems arise. Your Current Medications: CONTINUE TAKING THE FOLLOWING MEDICATIONS: MetFORMIN HCl Oral : Tablet 500 mg, 1 tablet 2x a day. Omeprazole Oral : 40 mg daily. Prescription Medications: Zofran (orally disintegrating tablets) 4 mg: take 1 orally every 4 hours as needed for nausea. Dispense five (5). No refill. GoLytely 4 oz every 15 minutes until gone. # 1 jug. Follow-up: Return to the emergency department tomorrow if not better. Follow up with your doctor in one week. Call for an appointment. Follow up with a automatic clipper in two weeks. Call for the next available appointment. Understanding of the discharge instructions verbalized by patient. ADDITIONAL INFORMATION Abdominal Pain, Unknown Cause (Female) The exact cause of your abdominal (stomach) pain is not certain. This does not mean that this is something to worry about, or the right tests were not done. Everyone likes to know the exact cause of the problem, but sometimes with abdominal pain, there is no clear-cut cause, and this could be a good thing. The good news is that your symptoms can be treated, and you will feel better. Your condition does not seem serious now; however, sometimes the signs of a serious problem may take more time to appear. For this reason,it is important for you to watch for any new symptoms, problems,or worsening of your condition. Over the next few days, the abdominal pain may come and go, or be continuous. Other common symptoms can include nausea and vomiting. Sometimes it can be difficult to tell if you feel nauseous, you may just feel bad and not associate that feeling with nausea. Constipation, diarrhea, and a fever may go along with the pain. The pain may continue even if treated correctly over the following days. Depending on how things go, sometimes the cause can become clear and may require further or different treatment. Additional evaluations, medications, or tests may be needed. Home care Your health care provider may prescribe medications for pain, symptoms, or an infection. Follow the health care provider's instructions for taking these medications. General care Rest until your next exam. No strenuous activities. Try to find positions that ease discomfort. A small pillow placed on the abdomen may help relieve pain. Something warm on your abdomen (such as a heating pad) may help, but be careful not to burn yourself. Diet Do not force yourself to eat, especially if having cramps, vomiting, or diarrhea. Water is important so you do not get dehydrated. Soup may also be good. Sports drinks may also help, especially if they are not too acidic. Make sure you don't drink sugary drinks as this can make things worse. Take liquids in small amounts. Do not guzzle them. Caffeine sometimes makes the pain and cramping worse. Avoid dairy products if you have vomiting or diarrhea. Don't eat large amounts at a time. Wait a few minutes between bites. Eat a diet low in fiber (called a low-residue diet). Foods allowed include refined breads, white rice, fruit and vegetable juices without pulp, tender meats. These foods will pass more easily through the intestine. Avoid whole-grain foods, whole fruits and vegetables, meats, seeds and nuts, fried or fatty foods, dairy, alcohol and spicy foods until your symptoms go away. Follow-up care Follow up with your health care provider as instructed, or if your pain does not begin to improve in the next 24 hours. When to seek medical care Seek prompt medical care if any of the following occur: Pain gets worse or moves to the right lower abdomen New or worsening vomiting or diarrhea Swelling of the abdomen Unable to pass stool for more than three days Fever of 100.4F (38C) or higher, or as directed by your healthcare provider. Blood in vomit or bowel movements (dark red or black color) Jaundice (yellow color of eyes and skin) Weakness, dizziness Chest, arm, back, neck or jaw pain Unexpected vaginal bleeding or missed period Call 911 Call emergency services if any of the following occur: Trouble breathing Confusion Fainting or loss of consciousness Rapid heart rate Seizure Ondansetron Oral disintegrating tablet What is this medicine? ONDANSETRON (on PATRIZIA se raymond) is used to treat nausea and vomiting caused by chemotherapy. It is also used to prevent or treat nausea and vomiting after surgery. How should I use this medicine? These tablets are made to dissolve in the mouth. Do not try to push the tablet through the foil backing. With dry hands, peel away the foil backing and gently remove the tablet. Place the tablet in the mouth and allow it to dissolve, then swallow. While you may take these tablets with water, it is not necessary to do so. Talk to your manager payer regarding the use of this medicine in children. Special care may be needed. What side effects may I notice from receiving this medicine? Side effects that you should report to your doctor or health home care attendant as soon as possible: allergic reactions like skin rash, itching or hives, swelling of the face, lips, or tongue breathing problems dizziness fast or irregular heartbeat feeling faint or lightheaded, falls fever and chills swelling of the hands and feet tightness in the chest Side effects that usually do not require medical attention (report to your doctor or health home care attendant if they continue or are bothersome): constipation or diarrhea headache What may interact with this medicine? Do not take this medicine with any of the following medications: -apomorphine -cisapride -dofetilide -dronedarone -pimozide -thioridazine -ziprasidone This medicine may also interact with the following medications: -carbamazepine -phenytoin -rifampicin -tramadol -other medicines that prolong the QT interval (cause an abnormal heart rhythm) What if I miss a dose? If you miss a dose, take it as soon as you can. If it is almost time for your next dose, take only that dose. Do not take double or extra doses. Where should I keep my medicine? Keep out of the reach of children. Store between 2 and 30 degrees C (36 and 86 degrees F). Throw away any unused medicine after the expiration date. What should I tell my health care provider before I take this medicine? They need to know if you have any of these conditions: heart disease history of irregular heartbeat liver disease low levels of magnesium or potassium in the blood an unusual or allergic reaction to ondansetron, granisetron, other medicines, foods, dyes, or preservatives or trying to get breast-feeding What should I watch for while using this medicine? Check with your doctor or health home care attendant as soon as you can if you have any sign of an allergic reaction. You have been given the following additional information: Abdominal Pain, Unknown Cause, (Female) Ondansetron Oral disintegrating tablet Do not work today, for one day until better. (Electronically signed by Teofilo Madrid MD 02/11/2017 8:56)
--- NOTE | 2017-02-11 08:56 | ED MAR SUMMARY ---
..... Medication Administration Record [facility] [address] [place] [address] Patient: DAGOBERTO BATISTA Visit ID: [id number] 56y, F Weight: 81.6 kg Height/Length: 62 in BMI: 32.9 ALLERGIES: morphine Start 06:01 02/10/2017 Geri Hong R.N., Stop 07:59 02/10/2017 Brodie Green R.N. Medication Administered: IV NS (SALINE), Dose: IV Fluids over 1 hour(s), Bolus: 1000 mL wide open, Dispensed: 1000 mL bag, Site: #1 left wrist. Medication Ordered: IV NS : initial bolus 1000 mL (1000 mL/hr), then 125 mL/hr for 4h (NOW); Routine. Start 08:04 02/10/2017 Brodie Green R.N., Stop 09:14 02/10/2017 Brodie Green R.N. Medication Administered: IV NS (SALINE), Dose: IV Fluids over 4 hour(s), Rate: 125 mL/hr, Dispensed: 1000 mL bag, Site: #1 left wrist. Medication Ordered: IV NS : initial bolus 1000 mL (1000 mL/hr), then 125 mL/hr for 4h (NOW); Routine.
--- NOTE | 2017-02-11 08:56 | ED MED RECONCILIATION SUMMARY ---
Patient: DAGOBERTO BATISTA Medication Reconciliation Report [facility] VisitID: [id number] [address] [place] [address] 56y, F Registration Date/Time: 02/10/2017 Weight: 81.6 kg Height/Length: 62 in. BMI: 32.9 ALLERGIES: morphine The patient's Home Medications are listed below: CONTINUE TAKING THE FOLLOWING MEDICATIONS: MetFORMIN HCl Oral (500 mg) 1 tablet, 2x a day Omeprazole Oral 40 mg, daily The source(s) of the original Home Medication information: Not obtained. The following Medications were given to the patient in the Emergency Department: IV NS IV Fluids bolus 1000 mL wide open, administered: 02/10/2017 6:01:00 AM IV NS IV Fluids bolus 0, then 125 mL/hr, administered: 02/10/2017 8:04:00 AM The following Medications were prescribed to the patient: Zofran (orally disintegrating tablets) 4 mg: take 1 orally every 4 hours as needed for nausea. Dispense five (5). No refill. -- Teofilo Madrid MD GoLytely 4 oz every 15 minutes until gone. # 1 jug. -- Teofilo Madrid MD
--- NOTE | 2017-02-11 08:56 | ED MAR SUMMARY ---
..... Medication Administration Record [facility] [address] [place] [address] Patient: DAGOBERTO BATISTA Visit ID: [id number] 56y, F Weight: 81.6 kg Height/Length: 62 in BMI: 32.9 ALLERGIES: morphine Start 06:01 02/10/2017 Geri Hong R.N., Stop 07:59 02/10/2017 Brodie Green R.N. Medication Administered: IV NS (SALINE), Dose: IV Fluids over 1 hour(s), Bolus: 1000 mL wide open, Dispensed: 1000 mL bag, Site: #1 left wrist. Medication Ordered: IV NS : initial bolus 1000 mL (1000 mL/hr), then 125 mL/hr for 4h (NOW); Routine. Start 08:04 02/10/2017 Brodie Green R.N., Stop 09:14 02/10/2017 Brodie Green R.N. Medication Administered: IV NS (SALINE), Dose: IV Fluids over 4 hour(s), Rate: 125 mL/hr, Dispensed: 1000 mL bag, Site: #1 left wrist. Medication Ordered: IV NS : initial bolus 1000 mL (1000 mL/hr), then 125 mL/hr for 4h (NOW); Routine.
== END 2017-02-10 09:23 | disposition home or self-care (01) ==
LOC: ED SRH 05:26
DX: R10.32 Left lower quadrant pain (principal); E11.9 Type 2 diabetes mellitus without complications; K21.9 Gastro-esophageal reflux disease without esophagitis; Z79.84 Long term (current) use of oral hypoglycemic drugs; Z79.899 Other long term (current) drug therapy; Z88.5 Allergy status to narcotic agent
CPT/HCPCS: 90004; 90100; 90469; 90616; 91585; 92031; 92235; 92530; 92610; 92720; 92760; 92761; 92762; 92763; 92764; 92765; 92766; 92767; 93004; 95059